=== PATIENT | male | born 1975 | race Caucasian/White ===

== ENCOUNTER → 2024-04-08 07:17 | Outpatient (REF) | payer OTHER, SELFPAY | LOC: MRI 3T 07:17 | PROVIDERS: ATTENDING PHYSICIAN Internal Medicine Gastroenterology; FAMILY PHYSICIAN Nurse Practitioner Family | DX: K50.90 Crohn's disease, unspecified, without complications (principal) | CPT/HCPCS: 72197; 74183; A9575 ==

== ENCOUNTER → 2024-04-22 06:35 | Day surgery (SDC) | payer OTHER, SELFPAY | LOC: GI 06:35 | PROVIDERS: ATTENDING PHYSICIAN Internal Medicine Gastroenterology | DX: Z12.11 Encounter for screening for malignant neoplasm of colon (principal); K51.50 Left sided colitis without complications; K63.5 Polyp of colon; K64.8 Other hemorrhoids | CPT/HCPCS: 45380; 88305 ==

== ENCOUNTER → 2024-10-06 12:21 | Outpatient (REF) | payer OTHER, SELFPAY | LOC: RAD 12:21 | PROVIDERS: ATTENDING PHYSICIAN Internal Medicine Gastroenterology; FAMILY PHYSICIAN Nurse Practitioner Family | DX: Z20.9 Contact with and (suspected) exposure to unspecified communicable disease (principal) | CPT/HCPCS: 71046 ==